=== PATIENT | male | born 1995 | race Caucasian/White ===

== ENCOUNTER → 2018-02-05 11:15 | Outpatient (CLI) | payer BC, SELFPAY ==
[2018-02-05 12:47] LABS: AST(SGOT) 19 U/L (15-37); Alanine Aminotransfer ALT/SGPT 15 U/L (16-61); Cholesterol 149 mg/dL (200); High Density Lipoprotein 53 mg/dL; Triglycerides 84 mg/dL; Very Low Density Lipoprotein 17 mg/dL (5-40)
[2018-02-06 08:40] LABS: LDL, Direct 120295 96 mg/dL (0-99)
== END ==
PROVIDERS: Referring Provider Dermatology; Visit Provider Dermatology
DX: L70.0 Acne vulgaris (principal); Z79.899 Other long term (current) drug therapy; L23.3 Allergic contact dermatitis due to drugs in contact with skin
CPT/HCPCS: 36415; 80061; 83721; 84450; 84460

== ENCOUNTER → 2022-01-26 | Outpatient (CLI) | payer BC, SELFPAY | END | disposition home or self-care (01) | LOC: LABSPEC 15:05 | PROVIDERS: Visit Provider Otolaryngology Otolaryngology/Facial Plastic Surgery | DX: J32.8 Other chronic sinusitis (principal) | CPT/HCPCS: 87070; 87077; 87186; 87205 ==